=== PATIENT | female | born 2000 | race Caucasian/White ===

== ENCOUNTER 2021-09-16 21:59 | Day surgery (SDC) | payer OTHER ==
[~2021-09-16] VITALS: Ht 160 cm; Wt 69.3 kg
[2021-09-16 23:33] LABS: BASO % 0.2 % (0.0-2.0); EOS # 0.1 K/mm3 (0.0-0.7); EOS % 0.4 % (0-4.0); GRAN # 13.7 K/mm3 (1.4-6.5); GRAN % 87.2 % (42.2-75.2); HEMATOCRIT 39.9 % (37.0-47.0); HEMOGLOBIN 13.1 g/dl (12.5-16.0); MEAN CELL VOLUME 90 fl (80.0-100.0); MEAN CORPUSCULAR HEMOGLOBIN 29 pg (27.0-31.0); MEAN CORPUSCULAR HGB CONC 33 g/dl (33.0-37.0); MEAN PLATELET VOLUME 9.9 fl (7.4-10.4); MONO # 0.9 K/mm3 (0.1-0.6); MONO % 5.8 % (1.7-9.3); PLATELET COUNT 210 K/mm3 (130-400); RED BLOOD COUNT 4.46 M/mm3 (4.10-5.30); REDCELL DISTRIBUTION WIDTH-CV 12.2 % (11.5-14.5)
[2021-09-16 23:51] LABS: BILIRUBIN,TOTAL 0.8 mg/dL (0.2-1.2); CALCIUM 9.2 mg/dL (8.4-10.2); CREATININE, serum 0.93 mg/dL (0.57-1.11); POTASSIUM 3.6 mmol/L (3.5-4.5); TOTAL PROTEIN 6.8 gm/dL (6.2-8.1)
[2021-09-17 00:13] LABS: COLLECTION METHOD CLEAN CATCH
[2021-09-17 00:20] LABS: PH 7 (5-8); SQUAMOUS EPITHELIAL 0-2 /hpf; URINE APPEARANCE Clear; URINE BACTERIA None Seen /hpf; URINE BILIRUBIN Negative (NEGATIVE); URINE BLOOD Negative (NEGATIVE); URINE COLOR Yellow; URINE GLUCOSE Negative (NEGATIVE); URINE KETONE 2+ (NEGATIVE); URINE LEUKOCYTE ESTERASE 1+ (NEGATIVE); URINE NITRATE Negative (NEGATIVE); URINE PROTEIN(semi-quant) Negative (NEGATIVE); URINE RBC 0-2 /hpf
[2021-09-17 03:14] VITALS: BP 128/57; PULSE 103; TEMP 99.1
[2021-09-17] MEDS ORDERED: BLISOVI FE 1.51 EACH PO (03:30)
--- NOTE | 2021-09-17 06:00 | NUR ---
PATIENT SLEPT ON AND OFF. PAIN MEDS GIVEN PER ORDERS. AWAITING SURGERY THIS AM. MOM SAID SHE WOULD LIKE TO BE THERE WHEN CONSENT IS SIGNED.
--- NOTE | 2021-09-17 06:40 | NUR ---
Report received from director of gift planning nurse. Patient is requesting pain meds at this time, pn 05/24. This nurse informed patient it is too early to administer pain medication but would give her meds KATIE. Call light and bedside table are within reach. Will continue to monitor patient throughout shift.
[2021-09-17 07:23] VITALS: BP 109/57; PULSE 93; TEMP 98.2
[2021-09-17] MEDS ORDERED: AMOXICILLIN 8751 TAB PO (11:46)
[2021-09-17] MEDS ORDERED: NORCO 325 MG-51 TAB PO (11:46)
[2021-09-17] MEDS ORDERED: MOTRIN 600600 MG/TAB PO (11:47)
[2021-09-17 12:33] VITALS: BP 123/70; PULSE 90; TEMP 98.6
[2021-09-17 12:45] VITALS: BP 115/65; PULSE 94
[2021-09-17 13:00] VITALS: BP 117/73; PULSE 85
--- NOTE | 2021-09-17 13:10 | NUR ---
1310 Pt ambulates to restroom with assistance. Pt voids and returns to room without complication.
--- NOTE | 2021-09-17 13:46 | NUR ---
1225 Bedside report received from Davida [employer]ER. 1230 Transport pt from PACU to [place] [address] for discharge. Transport via cart and this RN assist with family accompanying. 1233 Pt arrives to [place] [address]. Monitors on and alarms set. Call light within reach. Pt denies pain or nausea. Pt requests saltines and water. 1250 Pt taking food and drink well. No complications voiced by pt. 1315 Discharge instructions given to pt and family. All questions answered to their satisfaction. Handed to them are the instructions, a release from school note, and a follow-up appt notification for October 02 at 9:00 AM. 1346 Pt transferred out of hospital via wheelchair and this RN to private vehicle driven by family.
== END 2021-09-17 13:46 | disposition home or self-care (01) ==
LOC: COL.ER 21:59 → SDCO 09-17 01:24 → SURG 09-17 01:24 → COL.ER 09-17 01:24 → OR 09-17 12:11 → SURG 09-17 12:11 → OR 09-17 13:46 → SDCO 09-17 13:46
PROVIDERS: Student in an Organized Health Care Education/Training Program
DX: K35.80 Unspecified acute appendicitis (principal); D72.829 Elevated white blood cell count, unspecified; Z79.899 Other long term (current) drug therapy; Z87.891 Personal history of nicotine dependence; Z82.49 Family history of ischemic heart disease and other diseases of the circulatory system
CPT/HCPCS: J1100; J1170; J2270; J2405; J2543; J2704; J3010; J7030; J7120; Q9967